=== PATIENT | male | born 1950 | race Caucasian/White ===

== ENCOUNTER 2022-04-19 13:44 | Emergency (ER) | payer OTHER ==
[~2022-04-19 13:44] MED LIST: Iopamidol 370 76% 100 ML VIAL ONE
[2022-04-19] MEDS ORDERED: Morphine 4 MG/ML VIAL ONE ×2 (14:12→15:02)
[2022-04-19 14:36] LABS: Specific Gravity, Urine 1.015 (1.005-1.030)
[2022-04-19 14:38] LABS: Bilirubin Unable to Interpret (Negative); Clarity Clear (Clear); Glucose, Urine (Dipstick) Unable to Interpret mg/dL (Negative); Ketone, Urine Unable to Interpret mg/dL (Negative); Leukocyte Unable to Interpret (Negative); Nitrite Unable to Interpret (Negative); Protein, Urine (Dipstick) Unable to Interpret mg/dl (Neg-Trace); Urobilinogen UNABLE TO INTERPRET mg/dL (Less than 2)
[2022-04-19 14:39] LABS: Bacteria/HPF None Seen HPF (None Seen); Blood, Urine Unable to Interpret (Negative); RBC/HPF None Seen HPF (0-3); Squamous Epithelial 0-3 HPF (0-3); WBC/HPF None Seen HPF (0-3)
[2022-04-19 14:39] LABS: Hemoglobin 15.7 g/dL (13.5-17.5); Mean Corpuscular HGB CONC 34.7 g/dL (32.0-36.0); Mean Corpuscular Hemoglobin 29.4 pg (27.0-33.0); Mean Corpuscular Volume 84.6 fl (81.2-95.1); Mean Platelet Volume 9.8 fl (7.4-10.4); Platelet Count 182 10x3/uL (150-450); RBC Distribution Width 14.3 % (11.5-14.5); Red Blood Cell (RBC) Count 5.34 10x6/uL (4.32-5.72); White Blood Cell (WBC) Count 10.2 10x3/uL (3.5-10.5)
[2022-04-19 15:11] LABS: Band 10 % (5-11); Eosinophils 4 % (0-10)
[2022-04-19 15:12] LABS: Monocytes 1 % (0-10)
[2022-04-19 15:13] LABS: Lymphocytes 8 % (21-51); Reactive Lymphocytes 3 % (0-10)
[2022-04-19 15:14] LABS: Neutrophil 74 % (42-75)
[2022-04-19 15:15] LABS: Platelet Clumps SLIGHT; Platelet Morphology Comment Appears Adequate; Toxic Granulation SLIGHT; Vacuoles SLIGHT
[2022-04-19 15:16] LABS: MDiff Complete? YES; RBC Morphology Normal
[2022-04-19 15:32] LABS: SARS-CoV-2 NAA Rapid Test Not Detected (NotDetected)
[2022-04-19] MEDS ORDERED: Mag-Al Plus 1200 MG/1200 MG/120 MG/30 ML UDCUP ONE (16:04)
[2022-04-19] MEDS ORDERED: Lidocaine Viscous Sol 2% 15 ml UD Cup ONE (16:04)
[2022-04-19] MEDS ORDERED: Ondansetron ODT 4 MG TAB ONE (17:20)
[2022-04-19 18:25] LABS: ALT (SGPT) 47 U/L (8-55); AST (SGOT) 86 U/L (5-34); Albumin 3.9 g/dL (3.4-4.8); Alkaline Phosphatase 107 U/L (40-110); Anion Gap 19 mmol/L (10-20); BUN (Urea Nitrogen) 15 mg/dL (8.4-25.7); Bilirubin, Total 9.2 mg/dL (0.2-1.2); Calc. Creatinine Clearance 0 mL/min (70-130); Calcium 7.9 mg/dL (7.8-10.44); Carbon Dioxide 21 mmol/L (23-31); Chloride 102 mmol/L (98-107); Estimated GFR 80; Globulin 4.1 g/dL (2.4-3.5); Glucose 176 mg/dL (83-110); Sodium 140 mmol/L (136-145)
[2022-04-19] MEDS ORDERED: Ondansetron PF 4 MG/2 ML Vial ONE (18:57)
[2022-04-19 19:42] LABS: Potassium 2.3 mmol/L (3.5-5.1)
[2022-04-19] MEDS ORDERED: HYDROmorphone 0.5 MG/0.5 ML SYRINGE ONE (19:53)
[2022-04-19] MEDS ORDERED: Potassium Bicarbonate/Cit Ac 25 MEQ TAB ONE (19:59)
[2022-04-19 20:04] LABS: Lipase 83 U/L (8-78)
== END 2022-04-19 22:34 | disposition short-term general hospital (02) ==
LOC: CSHERS 13:44
DX: M54.9 Dorsalgia, unspecified (principal); I25.2 Old myocardial infarction; I10 Essential (primary) hypertension; E78.5 Hyperlipidemia, unspecified; Z20.822 Contact with and (suspected) exposure to COVID-19; Z79.899 Other long term (current) drug therapy
CPT/HCPCS: 36415; 51702; 71045; 71275; 74174; 80053; 81003; 81015; 83690; 84484; 85025; 87086; 93005; 96361; 96374; 96375; 96376; J1170; J2270; J2405; Q0162; Q9967; U0002